=== PATIENT | male | born 1955 | race Caucasian/White ===

== ENCOUNTER 2020-12-17 19:29 | Emergency (ER) | payer OTHER ==
[~2020-12-17] VITALS: Ht 172.7 cm; Wt 90.0 kg
--- NOTE | 2020-12-17 19:37 | PHYS DOC ---
General Adult EDM: Chief Complaint: HEAD INJURY/TRAUMA HPI: HPI: 65-year-old male presents via EMS after fall. The patient is intoxicated with alcohol. He states that he got drunk at the bar and decided he needed to walk home. As he was walking he tripped and fell and hit the back of his head. He is not sure what he hit his head on. He denies loss of consciousness. He has not had any vomiting. He is complaining of no pain at this time. He is on blood pressure medication but not a blood thinner. Review of Systems: Review of Systems: Constitutional: Denies fever or chills Eyes: Denies change in visual acuity HENT: Denies nasal congestion or sore throat Respiratory: Denies cough or shortness of breath Cardiovascular: Denies chest pain or edema GI: Denies abdominal pain, nausea, vomiting, bloody stools or diarrhea : Denies dysuria Musculoskeletal: Denies back pain or joint pain Integument: Scalp laceration Neurologic: Denies headache, focal weakness or sensory changes Endocrine: Denies polyuria or polydipsia Lymphatic: Denies swollen glands Psychiatric: Denies depression or anxiety Current Medications: Current Meds: Current Medications Medications (Trade) Dose Ordered Sig/Nasir Start Time Stop Time Status Last Admin Dose Admin Multivitamins/ Minerals 10 ml/ Folic Acid 1 mg/ Thiamine HCl 100 mg/Sodium Chloride 1,011.3 ml @ 1,000.187 mls/hr 1X ONCE 12/17/20 19:45 12/17/20 20:45 UNV Allergies: Allergies: Allergies Coded Allergies Type Severity Reaction Last Updated Verified No Known Drug Allergies 12/17/20 No Physical Exam: PE: Constitutional: Well developed, well nourished, intoxicated. [] HENT: Normocephalic, atraumatic, bilateral external ears normal, oropharynx moist, no oral exudates, nose normal. [] Eyes: PERRLA, EOMI, conjunctiva normal, no discharge. [] Neck: Normal range of motion, no tenderness, supple, no stridor. [] Cardiovascular: Heart rate regular rhythm, no murmur [] Lungs & Thorax: Bilateral breath sounds clear to auscultation [] Abdomen: Bowel sounds normal, soft, no tenderness, no masses, no pulsatile mass es. [] Skin: Laceration posterior scalp. [] Back: No tenderness, no CVA tenderness. [] Extremities: No tenderness, no cyanosis, no clubbing, ROM intact, no edema. [] Neurologic: Alert and oriented X 3, normal motor function, normal sensory function, no focal deficits noted. [] Psychologic: Affect normal, judgement impaired, mood normal. [] EKG: EKG: [] Radiology/Procedures: Radiology/Procedures: [] Impressions: CT HEAD AND C-SPINE WO Clinical indications: Reason: drunk fall with head injury NONCONTRAST HEAD CT COMPARISON: None available. Technique: Noncontrast axial cross sectional scanning of the head was performed. PQRS compliance Statement One or more of the following individualized dose reduction techniques were utilized for this study: 1. Automated exposure control 2. Adjustment of the mA and/or kV according to patient size 3. Use of iterative reconstruction technique Findings: No acute intracranial hemorrhage or midline shift or mass-effect or hydrocephalus or extra-axial fluid collection is seen. Mild bilateral periventricular white matter hypodensity is seen consistent chronic small vessel ischemic disease in this age group. No skull fracture or pneumocephalus is seen. No opacification of the mastoid sinuses or the middle ear cavities or the paranasal sinuses is seen. The maxillary sinuses are not completely seen in this study. There is fracture of the right zygomatic arch. This may be old but clinical correlation is recommended. IMPRESSION: No acute intracranial abnormality is seen. Zygomatic arch fracture on the right side. This may be old. Clinical correlation is recommended however. NONCONTRAST CERVICAL SPINE CT TECHNIQUE: Noncontrast helical CT scanning of the cervical spine was performed. Multiplanar 2-D reconstructions were generated. FINDINGS: Patient motion artifact is seen which does degrade the study. The odontoid process is intact and the C1 vertebrae is well aligned with the C2 vertebrae. There are deformities of the C5 and C6 and C7 spinous processes. This may be due to motion artifact but fractures and these areas cannot be excluded. There is degenerative disc space narrowing and endplate spurring from C2-3 through C7-T1 most severe at C5-6 and C6-7. IMPRESSION: Study significantly degraded by patient motion artifact. Question of fractures of the spinous processes at C5 and C6 and C7. Recommend repeat cervical spine CT study when the patient is sober. Electronically signed by: Eugenio Dasilva MD (12/17/2020 9:18 PM) [id number] DICTATED AND SIGNED BY: EUGENIO DASILVA MD DATE: 12/17/202106 CC: TIFFANIE ZEE DO; PCP,NO ~[facility] 0 Exam: CT head and cervical spine INDICATION: Fall, head pain TECHNIQUE: Sequential axial images through the head and cervical spine were obtained without the administration of IV contrast. Exposure: One or more of the following in the visualized dose reduction techniques were utilized for this examination: 1. Automated exposure control 2. Adjustment of the MA and/or KV according to patient size 3. Use of iterative of reconstructive technique Comparisons: None FINDINGS: Head: No focal parenchymal lesion or hemorrhage is identified. There is no midline shift or sulcal effacement. Mild patchy hypodensity in the periventricular white matter. No acute vascular territory infarction is identified. Matthews-white distinction is preserved. The ventricular system is within normal limits without compression hydrocephalus. The basal cisterns are well maintained. The visualized portions of the paranasal sinuses and mastoid air cells are well- pneumatized. No acute fractures. Cervical spine: Straightening of cervical spine which may be positional. Vertebral body heights are well-maintained. There is a mildly displaced fracture through the spinous process of C6 vertebral body. Multilevel spondylotic change in cervical spine with degenerative disc disease greatest at C3-C4, C4-C5 and C5-C6. Mild bilateral facet arthropathy is also noted in the cervical spine. Visualized paraspinal soft tissues are unremarkable. IMPRESSION: 1. No acute intracranial abnormality. 2. Mildly displaced fracture to the spinous process of C6. Correlate with mechanism of injury. If there is concern for ligamentous injury MRI would better evaluate. Electronically signed by: Ileana Heller MD (12/17/2020 10:52 PM) [facility] DICTATED AND SIGNED BY: ILEANA HELLER MD DATE: 12/17/20 743 CC: TIFFANIE ZEE DO; PCP,NO ~[facility] 0 Heart Score: C/O Chest Pain: N/A Risk Factors: Risk Factors: DM, Current or recent (<one month) smoker, HTN, HLP, family history of CAD, obesity. Risk Scores: Score 0 - 3: 2.5% MACE over next 6 weeks - Discharge Home Score 4 - 6: 20.3% MACE over next 6 weeks - Admit for Clinical Observation Score 7 - 10: 72.7% MACE over next 6 weeks - Early Invasive Strategies Course & Med Decision Making: Course & Med Decision Making Pertinent Labs and Imaging studies reviewed. (See chart for details) The patient's labs are significant for sodium of 124. I have no previous for comparison. His CT scan shows possible old zygomatic arch fracture. It also cannot tell whether or not he has spinous process fractures of the cervical spine. See official read for more details. We will continue to monitor the patient and repeat CT of the cervical spine. Repeat CT shows an isolated spinous process fracture of C6. This should be a stable fracture. I spoke with the nurse practitioner for Dr. Babcock at [facility] and he has recommended placing the patient in a hard collar and they will follow up in the office this week. The patient stable for discharge at this time. [] Dragon Disclaimer: Dragon Disclaimer: This electronic medical record was generated, in whole or in part, using a voice recognition dictation system. Laceration Repair Lac Repair Indication: [] 1 cm laceration of the scalp Procedure: I obtained verbal consent from the patient for staple repair of his 1 cm laceration of the scalp. The wound was thoroughly irrigated with normal saline under pressure. No foreign bodies were found. I placed 2 maryana across the wound. There was good skin approximation. Bleeding was controlled. No dressing was applied. Total repaired wound length: 1cm Other Items: none The patient tolerated the procedure well. Complications: none Departure Departure: Impression: Primary Impression: Spinous process fracture Additional Impressions: Alcohol intoxication Qualified Codes: F10.920 - Alcohol use, unspecified with intoxication, uncomplicated Laceration of scalp Qualified Codes: S01.01XA - Laceration without foreign body of scalp, initial encounter Disposition: HOME / SELF CARE / HOMELESS Condition: STABLE Patient Instructions: Cervical Spine Fracture, Stable, Stitches, Maryana or Skin Adhesive Strips, [id number] TIFFANIE ZEE DO Dec 17, 2020 19:37
[2020-12-17] MEDS ORDERED: MVI, ADULT NO.4 WITH VIT K 10 ML, FOLIC ACID INJ 1 MG, THIAMINE INJ 100 MG in IV NORMAL... IV ONE (19:45)
[2020-12-17] MEDS ORDERED: FOLIC ACID 1 MG TABLET PO ONE (20:30)
[2020-12-17 20:48] LABS: BASO # 0.1 x10^3/uL (0.0-0.2); BASO % 1 % (0-3); EOS # 0.1 x10^3/uL (0.0-0.7); EOS % 2 % (0-3); HEMATOCRIT 35.3 % (39.0-53.0); HEMOGLOBIN 12.6 g/dL (13.0-17.5); LYMPH # 2.4 x10^3/uL (1.0-4.8); LYMPH % 43 % (24-48); MEAN CORPUSCULAR HEMOGLOBIN 34 pg (25-35); MEAN CORPUSCULAR HGB CONC 36 g/dL (31-37); MEAN CORPUSCULAR VOLUME 96 fL (79-100); MONO # 0.7 x10^3/uL (0.0-1.1); MONO % 12 % (0-9); NEUT # 2.3 x10^3uL (1.8-7.7); NEUT % 42 % (31-73); PLATELET COUNT 191 x10^3/uL (140-400); RED BLOOD COUNT 3.69 x10^6/uL (4.30-5.70); RED CELL DISTRIBUTION WIDTH 13.4 % (11.5-14.5); WHITE BLOOD COUNT 5.5 x10^3/uL (4.0-11.0)
[2020-12-17 20:53] LABS: CREATININE 0.6 mg/dL (0.7-1.3); GFR 135.6; POTASSIUM 3.4 mmol/L (3.5-5.1)
[2020-12-17 20:58] LABS: ALBUMIN 3.6 g/dL (3.4-5.0); TOTAL BILIRUBIN 0.6 mg/dL (0.2-1.0); TOTAL PROTEIN 7.2 g/dL (6.4-8.2)
[2020-12-17 21:15] LABS: BILIRUBIN,URINE NEG (NEG); CLARITY,URINE CLEAR; COLOR,URINE STRAW; GLUCOSE,URINE NEG (NEG)
[2020-12-17 21:16] LABS: BACTERIA,URINE 0 /HPF (0-FEW); NITRITE,URINE NEG (NEG); RBC,URINE 0 /HPF (0-2); SQUAMOUS EPITHELIAL CELL,UR OCC /LPF; UROBILINOGEN,URINE 0.2 mg/dL (0.2 mg/dL); WBC,URINE 0 /HPF (0-4)
[2020-12-17 21:20] LABS: BARBITURATES NEG (NEG); BENZODIAZEPINES NEG (NEG); CANNABINOIDS NEG (NEG); COCAINE NEG (NEG); METHADONE NEG (NEG); OPIATES NEG (NEG); PHENCYCLIDINE NEG (NEG)
--- NOTE | 2020-12-17 21:20 | RAD ---
CT HEAD AND C-SPINE WO Clinical indications: Reason: drunk fall with head injury NONCONTRAST HEAD CT COMPARISON: None available. Technique: Noncontrast axial cross sectional scanning of the head was performed. PQRS compliance Statement One or more of the following individualized dose reduction techniques were utilized for this study: 1. Automated exposure control 2. Adjustment of the mA and/or kV according to patient size 3. Use of iterative reconstruction technique Findings: No acute intracranial hemorrhage or midline shift or mass-effect or hydrocephalus or extra- axial fluid collection is seen. Mild bilateral periventricular white matter hypodensity is seen consi stent chronic small vessel ischemic disease in this age group. No skull fracture or pneumocephalus is seen. No opacification of the mastoid sinuses or the middle ear cavities or the paranasal sinuses is seen. The maxillary sinuses are not completely seen in this study. There is fracture of the right zy gomatic arch. This may be old but clinical correlation is recommended. IMPRESSION: No acute intracranial abnormality is seen. Zygomatic arch fracture on the right side. Thi s may be old. Clinical correlation is recommended however. NONCONTRAST CERVICAL SPINE CT TECHNIQUE: Noncontrast helical CT scanning of the cervical spine was performed. Multiplanar 2-D recon structions were generated. FINDINGS: Patient motion artifact is seen which does degrade the study. The odontoid process is intac t and the C1 vertebrae is well aligned with the C2 vertebrae. There are deformities of the C5 and C6 and C7 spinous processes. This may be due to motion artifact but fractures and these areas cannot be excluded. There is degenerative disc space narrowing and endplate spurring from C2-3 through C7-T1 mo st severe at C5-6 and C6-7. IMPRESSION: Study significantly degraded by patient motion artifact. Question of fractures of the spi nous processes at C5 and C6 and C7. Recommend repeat cervical spine CT study when the patient is sobe r. Electronically signed by: Tariq Dasilva MD (12/17/2020 9:18 PM) [id number]
[2020-12-17 21:21] LABS: AMPHETAMINE/METHAMPHETAMINE NEG (NEG)
--- NOTE | 2020-12-17 22:55 | RAD ---
Exam: CT head and cervical spine INDICATION: Fall, head pain TECHNIQUE: Sequential axial images through the head and cervical spine were obtained without the admi nistration of IV contrast. Exposure: One or more of the following in the visualized dose reduction techniques were utilized for this examination: 1. Automated exposure control 2. Adjustment of the MA and/or KV according to patient size 3. Use of iterative of reconstructive technique Comparisons: None FINDINGS: Head: No focal parenchymal lesion or hemorrhage is identified. There is no midline shift or sulcal effaceme nt. Mild patchy hypodensity in the periventricular white matter. No acute vascular territory infarction i s identified. Matthews-white distinction is preserved. The ventricular system is within normal limits without compression hydrocephalus. The basal cisterns are well maintained. The visualized portions of the paranasal sinuses and mastoid air cells are well-pneumatized. No acute fractures. Cervical spine: Straightening of cervical spine which may be positional. Vertebral body heights are well-maintained. There is a mildly displaced fracture through the spinous process of C6 vertebral body. Multilevel spondylotic change in cervical spine with degenerative disc disease greatest at C3-C4, C4- C5 and C5-C6. Mild bilateral facet arthropathy is also noted in the cervical spine. Visualized paraspinal soft tissues are unremarkable. IMPRESSION: 1. No acute intracranial abnormality. 2. Mildly displaced fracture to the spinous process of C6. Correlate with mechanism of injury. If th ere is concern for ligamentous injury MRI would better evaluate. Electronically signed by: Ileana Ocampo MD (12/17/2020 10:52 PM) [facility]
[2020-12-17 23:45] VITALS: BP 124/76
== END 2020-12-17 23:52 | disposition home or self-care (01) ==
LOC: ER 19:29
DX: S12.500A Unspecified displaced fracture of sixth cervical vertebra, initial encounter for closed fracture (principal); S01.01XA Laceration without foreign body of scalp, initial encounter; F10.129 Alcohol abuse with intoxication, unspecified; Y90.0 Blood alcohol level of less than 20 mg/100 ml; W01.0XXA Fall on same level from slipping, tripping and stumbling without subsequent striking against object, initial encounter; Y93.01 Activity, walking, marching and hiking; Y92.89 Other specified places as the place of occurrence of the external cause; Y99.8 Other external cause status
CPT/HCPCS: 12001; 36415; 70450; 72125; 80053; 80307; 81001; 85025; 96365; 99285; J7030